=== PATIENT | male | born 1965 | race Caucasian/White ===

== ENCOUNTER 2017-02-20 12:37 | Inpatient (IN) ==
[2017-02-20 13:33] LABS: MANUAL DIFF NEEDED? NO
[2017-02-20 13:37] LABS: BASO% 0.4 % (0.0-0.8); EOS# 0.15 X1000 (0.0-0.7); EOS% 1.3 % (0.0-10.0); HEMATOCRIT 49.7 % (42.0-52.0); HEMOGLOBIN 17.6 g/dL (14.0-18.0); IMM GRAN# 0.02 X1000 (0.0-0.04); IMM GRAN% 0.2 % (0.0-0.5); LYMPH# 2.18 X1000 (1.2-3.4); LYMPH% 18.6 % (20.5-51.1); MCH 31.5 PG (27-31); MCHC 35.4 g/dL (33-37); MCV 88.9 FL (81-99); MONO# 1.29 X1000 (0.11-0.59); MPV 11.7 FL (7.4-10.4); NEUT% 68.5 % (42.2-75.2); PLT 167 X1000 (130-400); RBC 5.59 XMIL (4.7-6.1)
[2017-02-20 14:00] LABS: CALCIUM 9.8 mg/dL (8.8-10.2); POTASSIUM 3.7 mmol/L (3.5-5.1); TOTAL BILIRUBIN 0.83 mg/dL (0.20-1.00); TOTAL PROTEIN 8.6 g/dL (6.3-8.3)
[2017-02-20 14:25] LABS: URINE MICRO REVIEW NEEDED? NO; URINE SOURCE CLEAN CATCH
[2017-02-20 14:30] LABS: FREE T4 1.09 ng/dL (0.93-1.70)
[2017-02-20 14:42] LABS: BILIRUBIN URINE NEGATIVE (NEGATIVE); BLOOD URINE SMALL (NEGATIVE); COLOR YELLOW; GLUCOSE URINE NEGATIVE (NEGATIVE); LEUKOCYTES URINE SMALL (NEGATIVE); NITRITE URINE NEGATIVE (NEGATIVE); PROTEIN URINE 30 mg/dL (NEGATIVE); SP GRAVITY URINE 1.023; TURBIDITY URINE CLEAR (CLEAR); UROBILINOGEN URINE 2 mg/dL (NORMAL)
[2017-02-20 14:47] LABS: UR EPITHELIAL CELLS <10 /HPF (<10); URINE BACTERIA NEGATIVE /HPF; URINE CULTURE NEEDED? YES
[2017-02-20 14:52] LABS: UR AMPHETAMINES QUAL NONE DETECTED (NONE DETECT); UR BARBITUATES QUAL NONE DETECTED (NONE DETECT); UR BENZODIAZEPIN QUAL NONE DETECTED (NONE DETECT); UR CANNABINOIDS QUAL NONE DETECTED (NONE DETECT); UR COCAINE QUAL PRESUMPTIVE POSITIVE (NONE DETECT); UR METHADONE QUAL NONE DETECTED (NONE DETECT); UR OPIATES QUAL NONE DETECTED (NONE DETECT); UR OXYCODONE QUAL NONE DETECTED (NONE DETECT); UR PCP QUAL NONE DETECTED (NONE DETECT)
--- NOTE | 2017-02-20 15:49 | PROVIDER DOCUMENTATION ---
HPI-Psychological Disorder - General Chief Complaint: Psych Stated Complaint: AMS Time Seen by Provider: 02/20/17 15:20 Allergies/Adverse Reactions: Patient Allergies Allergy/AdvReac Type Severity Reaction Status Date / Time No Known Allergies Allergy Verified 08/17/15 10:58 Home Medications: Home Medication List Medication Instructions Recorded Confirmed Last Taken Type Albuterol Sulfate [Albuterol 8.5 gm IH Q4-6H PRN PRN #1 08/17/15 Unknown Rx Sulfate Hfa] hfa.aer.[email or web address] Benzonatate [Tessalon] 100 mg PO TID PRN PRN #20 capsule 08/17/15 Unknown Rx Cephalexin [Keflex] 500 mg PO BID #14 capsule 08/17/15 Unknown Rx Prednisone 20 mg PO DAILY #6 tablet 08/17/15 Unknown Rx - History of Present Illness-Psych Nature of Presenting Problem: 51 y.o male who presented to the ED with complaints of suicidal ideation. Pt is accompanied by mother. Pt reports history of incarceration, mental diseases and drug use since age 17. He reports binding of cocaine/crack and ETOH when going to [facility]. He has gone on a binge for the pat 4 days now. Pt reports the of his father in november and relationship problem with her fiance are the current stressors. He reports feeling worthless and is planning on cutting his wrist or neck with a knife. Pt also reports history of auditory hallucinations. He hears siren and voices but can't make out the words. In addition pt reports left flank pain that is sharp and intermittent. He has had for a couple days but feels more intense today. he indicates having a history of stage II kidney diseases. Pt denies dysuria, urinary frequency, hematuria, rectal pain, constipation, diarrhea. Pt also denies trauma. Timing: reports: still present Severity: reports: moderate Situational problems related to:: reports: spouse, parent Psychiatric Complaints: reports: hostile, homicidal thoughts, impaired concentration Substance Use: reports: alcohol, cocaine Previous psych related hospitalizations?: No Patient arrived by:: private car Similar Symptoms Previously?: Yes Recently seen or treated by another doctor?: No - Suicidal Ideation Suicide Risk Assessment: male sex, depressed, drug or ETOH abuse, no spouse Clinician's estimation of suicide risk?: uncertain risk Review of Systems - Adult - REVIEW OF SYSTEMS - ADULT Constitutional: reports: no symptoms reported Eyes: reports: no symptoms reported Ears, Nose, Mouth & Throat: reports: no symptoms reported Cardiovascular: reports: no symptoms reported Respiratory: reports: no symptoms reported Gastrointestinal: reports: no symptoms reported Genitourinary: denies: discharge, frequency, hematuria, hesitency Musculoskeletal: reports: back pain Neurological: reports: no symptoms reported Psychiatric: reports: see HPI, emotional problems Endocrine: reports: no symptoms reported Hematologic/Lymphatic: reports: no symptoms reported Allergic/Immunologic: reports: no symptoms reported All Other Systems: Reviewed and Negative Past History - Adult - PAST MEDICAL HISTORY-ADULT Review of Records: reports: Medications Reviewed Major Childhood Illnesses: reports: denies history Cardiovascular: reports: denies history Respiratory: reports: denies history Gastrointestinal: reports: denies history Obstetrical/Gynecological: reports: denies history Genitourinary: reports: denies history Musculoskeletal: reports: denies history Neurological: reports: denies history Endocrine/Immune: reports: denies history Other Conditions: reports: denies history Physical Exam-Psych Focus - Physical Exam-Psych Initial Vital Signs Reviewed: Yes Appearance: appropriate appearance, appropriate insight, neat, other (avoid eye contact, tearing,). negative: anxious, combative, disheveled Neurological: alert, normal mood/affect, production checker II-XII nml as tested, oriented x 3 , anxious. negative: agitated Behavior/Eye Contact/Speech: cooperative, normal speech, avoids eye contact. negative: decreased rate of speech, increased rate of speech, belligerent, compulsive, uncooperative Thoughts/Hallucinations: normal thought pattern, no apparent hallucination. negative: delusions, flight of ideas, grandiose, incoherent, obsessive, paranoid , persecution, phobic, tactile hallucinations, visual hallucinations HENMT: normocephalic/atraumatic, moist mucous membranes, dental decay Neck: non-tender, full range of motion, supple, normal inspection Respiratory: chest non-tender, lungs clear, normal breath sounds, no pleuratic chest pain Cardiovascular: regular rate, rhythm, no edema, no gallop, no JVD Abdominal Exam: non tender, no pulsatile mass. negative: abdominal bruit, distended Back Exam: no CVA tenderness, other (healed surgical wound in lumbar) Extremity: normal range of motion Integumentary: normal color, normal turgor Progress - PLAN OF CARE/RESULTS Progress/Plan/Lab Results: Laboratory Results - last 24 hr 02/20/17 02/20/17 02/20/17 13:15 13:15 13:15 WBC 11.69 H RBC 5.59 Hgb 17.6 Hct 49.7 MCV 88.9 MCH 31.5 H MCHC 35.4 RDW Std Deviation 12.5 Plt Count 167 MPV 11.7 H Immature Gran % (Auto) 0.2 Neut % (Auto) 68.5 Lymph % (Auto) 18.6 L Fergus % (Auto) 11.0 H Eos % (Auto) 1.3 Baso % (Auto) 0.4 Immature Gran # (Auto) 0.02 Neut # (Auto) 8.00 H Lymph # (Auto) 2.18 Fergus # (Auto) 1.29 H Eos # (Auto) 0.15 Baso # (Auto) 0.05 Sodium 136 Potassium 3.7 Chloride 96 L Carbon Dioxide 27 Anion Gap 13 BUN 22 Creatinine 1.4 H Estimated GFR/1.73 m2 54 BUN/Creatinine Ratio 16 Glucose 126 H Calculated Osmolality 277 Calcium 9.8 Total Bilirubin 0.83 AST 76 H ALT 64 H Alkaline Phosphatase 112 Total Protein 8.6 H Albumin 5.0 Globulin 3.6 Albumin/Globulin Ratio 1.4 Vitamin B12 TSH Free T4 Urine Source Urine Color Urine Turbidity Urine pH Ur Specific Coyle Urine Protein Ur Glucose (Stick) Ur Ketones (Stick) Urine Blood Urine Nitrite Urine Bilirubin Urobilinogen Dipstick Urine Leukocytes Urine WBC (Auto) Urine RBC (Auto) U Epithel Cells (Auto) Urine Bacteria (Auto) Urine Opiates Screen Ur Oxycodone Screen Ur Methadone, Qual Ur Barbiturates Screen Ur Phencyclidine Scrn Ur Amphetamines Screen U Benzodiazepines Scrn Urine Cocaine Screen U Cannabinoids Screen Plasma/Serum Ethyl Alc 02/20/17 02/20/17 02/20/17 13:15 13:51 13:51 WBC RBC Hgb Hct MCV MCH MCHC RDW Std Deviation Plt Count MPV Immature Gran % (Auto) Neut % (Auto) Lymph % (Auto) Fergus % (Auto) Eos % (Auto) Baso % (Auto) Immature Gran # (Auto) Neut # (Auto) Lymph # (Auto) Fergus # (Auto) Eos # (Auto) Baso # (Auto) Sodium Potassium Chloride Carbon Dioxide Anion Gap BUN Creatinine Estimated GFR/1.73 m2 BUN/Creatinine Ratio Glucose Calculated Osmolality Calcium Total Bilirubin AST ALT Alkaline Phosphatase Total Protein Albumin Globulin Albumin/Globulin Ratio Vitamin B12 499 TSH 2.04 Free T4 1.09 Urine Source CLEAN CATCH Urine Color YELLOW Urine Turbidity CLEAR Urine pH 6.0 Ur Specific Coyle 1.023 Urine Protein 30 A Ur Glucose (Stick) NEGATIVE Ur Ketones (Stick) 10 A Urine Blood SMALL A Urine Nitrite NEGATIVE Urine Bilirubin NEGATIVE Urobilinogen Dipstick 2 A Urine Leukocytes SMALL A Urine WBC (Auto) 10-20 A Urine RBC (Auto) 10-20 A U Epithel Cells (Auto) <10 Urine Bacteria (Auto) NEGATIVE Urine Opiates Screen NONE DETECTED Ur Oxycodone Screen NONE DETECTED Ur Methadone, Qual NONE DETECTED Ur Barbiturates Screen NONE DETECTED Ur Phencyclidine Scrn NONE DETECTED Ur Amphetamines Screen NONE DETECTED U Benzodiazepines Scrn NONE DETECTED Urine Cocaine Screen PRESUMPTIVE POSITIVE A U Cannabinoids Screen NONE DETECTED Plasma/Serum Ethyl Alc Orders Category [facility] Routine AdmDCTranf 02/20/17 19:30 Ordered Activity - Up with Assistance ORDERED Care 02/20/17 19:30 Active Apply Mechanical Device [QM] ORDERED Care 02/20/17 19:30 Active Intake and Output-Strict ORDERED Care 02/20/17 19:30 Active Nursing- MD Consult Request ROUTINE Care 02/20/17 19:53 Active Vital Signs Order Q 8-HR ASSESS Care 02/20/17 19:30 Active Z-Document. for Tele Applied ORDERED Care 02/20/17 19:31 Completed Physician/Provider Consults Routine Cons 02/20/17 19:52 Ordered NPO Diet 02/21/17 00:01 Active Regular Diet Diet 02/20/17 19:[address] RENAL STONE SEARCH [CT] Stat Exams 02/20/17 15:25 Completed ALCOHOL BLOOD Stat Lab 02/20/17 13:15 Completed BLOOD CULTURE [BLDCUL] Routine Lab 02/20/17 21:47 Results CBC WITH DIFF [HEME] Routine Lab 02/21/17 06:00 Completed CBC WITH ELECTRONIC DIFF [HEME] Stat Lab 02/20/17 13:15 Completed COMPREHENSIVE METABOLIC PANEL [CHEM] Routine Lab 02/21/17 06:00 Completed COMPREHENSIVE METABOLIC PANEL [CHEM] Stat Lab 02/20/17 13:15 Completed FREE T4 Stat Lab 02/20/17 13:15 Completed HEPATITIS PROFILE [HH] Routine Lab 02/21/17 06:00 Received MAGNESIUM [CHEM] Routine Lab 02/21/17 06:00 Completed PROTIME WITH INR [COAG] Routine Lab 02/21/17 06:00 Completed TSH Routine Lab 02/21/17 06:00 Completed TSH Stat Lab 02/20/17 13:15 Completed URINALYSIS W/POSS RFLX CULT-1 [URINALYSIS] Stat Lab 02/20/17 13:51 Completed URINE CULTURE [RM] Routine Lab 02/20/17 14:52 Results URINE DRUG SCREEN Stat Lab 02/20/17 13:51 Completed VITAMIN B12 Stat Lab 02/20/17 13:15 Completed 0.9% Sodium Chloride Inj [Ns] 1,000 ml Med 02/20/17 19:30 Active IV 100 mls/hr 0.9% Sodium Chloride Inj [Ns] 1,000 ml Med 02/20/17 16:21 Discontinued IV 999 mls/hr Carvedilol [Coreg] Med 02/20/17 21:00 Active 6.25 mg PO BID Ketorolac [Toradol] Med 02/20/17 16:20 Discontinued 30 mg IV NOW ONE LISINOpril [Prinivil] Med 02/21/17 09:00 Active 10 mg PO DAILY Lorazepam [Ativan] Med 02/20/17 19:35 Active 1 mg IV Q6H PRN PRN Morphine Med 02/20/17 19:33 Active 2 mg IV Q4H PRN PRN Mvi [M.v.i.-12] 10 ml Med 02/20/17 19:45 Active Folic Acid 1 mg Magnesium Sulfate 1 gm Thiamine 100 mg 0.9% Sodium Chloride Inj [Ns] 1,000 ml IV DAILY Mvi [M.v.i.-12] 10 ml Med 02/20/17 20:00 Discontinued Folic Acid 1 mg Magnesium Sulfate 1 gm Thiamine 100 mg 0.9% Sodium Chloride Inj [Ns] 1,000 ml IV ONCE Ondansetron [Zofran] Med 02/20/17 19:30 Active 4 mg IV Q4H PRN PRN Piperacillin/Tazobactam [Zosyn] 3.375 gm Med 02/20/17 19:45 Active 0.9% Sodium Chloride Inj [Ns] 50 ml IV Q6H Silodosin [Rapaflo] Med 02/21/17 09:00 Active 8 mg PO DAILY Telemetry [OM.EQ] Routine Oth 02/20/17 19:30 Active Transfer/Admit Order [TRANSFER] Routine Transfer 02/20/17 19:36 Completed Result Diagrams: 02/21/17 06:00 02/21/17 06:00 Departure - Departure Date of Disposition Decision: 02/20/17 Time of Disposition Decision: 17:37 DIAGNOSIS: Suicidal ideation Disposition: ADMITTED INPATIENT 09 Certified Medical Emergency: Emergent Condition: Stable - Critical Care Note This patient required my direct & personal management of CC.: No Attestation - Physician/ DAVE Attestation Patient care was provided by Advanced Practice Provider:: No The physician spent face to face time with patient:: Yes Advanced Practice Provider documentation review:: Supervising physician onsite and consulted in the evaluation and care of this patient. The physician did have a face to face encounter with the patient.
--- NOTE | 2017-02-20 16:06 | Diag Imaging Result Doc PS360 ---
EXAM: CT RENAL STONE SEARCH HISTORY: Left flank pain TECHNIQUE: CT abdomen and pelvis without contrast. Dose reduction protocol. COMPARISON: None. FINDINGS: The upper abdomen is not included on this exam. Normal noncontrasted liver, spleen, and pancreas. Normal gallbladder and adrenal glands. No right renal stone or right-sided hydronephrosis. There is a 4 x 4 by 8 mm stone in the proximal to mid left ureter with moderate proximal hydronephrosis and perinephric inflammation. No aortic aneurysm. Moderate atherosclerosis. No bowel obstruction. Normal appendix. No abscess. There are scattered diverticula in the distal colon. The urinary bladder is only mild to moderately distended and appears normal. The prostate is not enlarged. IMPRESSION: 1.There is an 8 mm stone in the mid left ureter with moderate hydronephrosis 2.Diverticulosis Electronically signed by Sriram Jasmine 02/20/2017 4:03 PM
[2017-02-20] MEDS ORDERED: TORADOL IV ONE (16:20)
[2017-02-20] MEDS ORDERED: NS 1,000 ML IV ONE (16:21)
[2017-02-20] MEDS ORDERED: ZOFRAN IV PRN (19:30)
[2017-02-20] MEDS ORDERED: MORPHINE IV PRN (19:33)
[2017-02-20] MEDS ORDERED: ATIVAN IV PRN (19:35)
[2017-02-20] MEDS ORDERED: M.V.I.-12 10 ML, FOLIC ACID 1 MG, MAGNESIUM SULFATE 1 GM, THIAMINE 100 MG in NS 1,000 ML IV ONE (20:00)
[2017-02-20] MEDS ORDERED: ZOSYN 3.375 GM in NS 50 ML IV SCH (20:00)
[2017-02-20] MEDS: M.V.I.-12 10 ML, FOLIC ACID 1 MG, MAGNESIUM SULFATE 1 GM, THIAMINE 100 MG in NS 1,000 ML IV SCH (20:30)
[2017-02-20] MEDS: NS 1,000 ML IV SCH (20:30)
[2017-02-20] MEDS: ZOSYN 3.375 GM in NS 50 ML IV SCH (20:30)
--- NOTE | 2017-02-20 22:06 | HISTORY AND PHYSICAL ---
PRESENTING COMPLAINT: Abdominal pain. Suicidal ideation. Emotional distress. HISTORY OF PRESENTING COMPLAINT: Mr. Simon is a 51-year-old male with a history of hypertension, recreational drug abuse, nicotine dependence, and psychiatric illness of undetermined diagnosis who said he was going through some emotional stresses at home and this morning according to the mother she thought Mr. Simon was going to do something very stupid because he was just crying. He was referring to the fact that he wanted to hurt himself, that he cannot fight anymore. So the mother just wanted help; however, during the episode of crying and all that, he started referring to left-sided abdominal pain which radiated to the back, very intense, that made him double up. He came to the emergency department and they did a CT scan which revealed an 8 mm stone in the left ureter causing some moderate hydronephrosis. [facility] was consulted. However, because of the CT findings, they advised that we take care of the medical problems 1st before patient can be sent over there. Patient will therefore be admitted under observation for urological exploration of the stone and then discharged to [facility]. PAST MEDICAL HISTORY: 1. Multiple recreational drug abuses. 2. Tobacco dependent. 3. Hypertension. MEDICATIONS AT HOME: 1. Lisinopril. 2. Metoprolol. 3. Patient does not really know the doses. PAST SURGICAL HISTORY: Unremarkable. SOCIAL HISTORY: Patient smokes about two packs of cigarettes daily for the past 2-3 years, which according to him it is just worse. But had about a pack of a pack of cigarettes for over 20 years. The patient also binges on alcohol. He does not really know how much because he just gets ticked off and then he just drinks to hurt himself. FAMILY HISTORY: Positive for hypertension. PSYCHIATRIC HISTORY: Patient had been a prisoner, incarcerated for 9 years and got released a couple of years ago. He has been using multiple street drugs, including heroin, meth, smokes extensively. He has a very stressful relationship at home with the girlfriend and according to him, he just cannot take it any longer and he wants to end his life. REVIEW OF SYSTEMS: A 14 point review of system conducted with him is unremarkable except what we have in the HPI and the psychiatric history. PHYSICAL EXAMINATION: VITALS: Blood pressure is 156/107, pulse 88, respirations 18, temperature is 97.9 degrees. GENERAL: Mr. Simon is a 51-year-old gentleman. He is in bed. He is not in any remarkable distress. HEENT: Mucosa is pink and moist. Anicteric and acyanotic. NECK: Supple. There is no JVD. CHEST: There is good air entry bilateral. There are no crepitations, no rhonchi. CARDIOVASCULAR: Regular rate and rhythm. There are no murmurs, no rubs, no gallops. ABDOMEN: Soft. There is some tenderness to the left flank and the left lower quadrant. There is also some left CVA tenderness. EXTREMITIES: No pedal edema. 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 There is no focal neurological deficit. Cranial nerves 2-12 have been grossly examined and unremarkable. There is no motor deficit. Sensation is intact. PSYCHIATRIC: Patient has flight of ideas, is very tearful. Occasionally will stop and cry. LABORATORY DATA: WBC is 11.69, hemoglobin is 17.6, platelet count is 167,000. Chemistry is reviewed. Sodium is 136, potassium is 3.9, chloride is 96, bicarb is 27, creatinine is 1.4. AST 76, ALT 64. B12 and folate are normal. TSH is normal. DIAGNOSTIC STUDIES: A CT scan of the abdomen, renal CT shows an 8-mm stone in the mid left ureter with moderate hydronephrosis. There is also some diverticulosis. ASSESSMENT: Mr. Simon is a 51-year-old male with an extensive psychiatric history and also drug addiction who presented with abdominal pain and some suicidal ideation. A CT scan shows ureteral stone with hydronephrosis. ASSESSMENT: 1. Left side abdominal pain secondary to ureteral stone. 2. Left hydronephrosis. 3. Street drug addiction. 4. Alcohol abuse. 5. History of hypertension, which is uncontrolled. 6. Renal insufficiency. Unsure the duration, presumably acute. 7. Transaminitis, likely alcohol hepatopathy; however, viral hepatitis needs to be ruled out because of patient's history. 8. Suicidal ideation. 9. Suspected major depression. PLAN: So for now, we are going to admit Mr. Simon under observation. We are going to hydrate him with normal saline at a rate of 100 mL/hour. We will start him on antibiotics, Zosyn at 3.375 q.6 hourly. Urine cultures have been sent and blood cultures have also been done. I have already consulted and spoken personally with Dr. Leroy, and he plans to take him in tomorrow for a stent placement in the left ureter to decompress the kidneys. I will do a hepatitis panel just to check on his viral status. Once the procedure is done tomorrow, hopefully will reconsult [facility] to transfer the patient over there. cc: Nicho Madrid MD
[2017-02-21] MEDS: M.V.I.-12 10 ML, FOLIC ACID 1 MG, MAGNESIUM SULFATE 1 GM, THIAMINE 100 MG in NS 1,000 ML IV SCH ×2 (00:43→10:43)
--- NOTE | 2017-02-21 04:12 | CONSULTATION ---
DATE OF CONSULTATION: 02/20/2017 ATTENDING AND REFERRING PHYSICIAN: Hospitalist. HISTORY OF PRESENT ILLNESS: This 51-year-old male came to the emergency room because of suicide ideation. He complained of left flank pain while there and a CT stone search revealed an 8 mm left proximal ureteral stone. He could not be transferred to the psychiatric hospital with a medical problem. The patient states he has never had stones before. He has had no previous urologic surgery. He denies any problems voiding. He has had no hematuria. PAST MEDICAL HISTORY: Chronic renal insufficiency, hypertension, drug addiction, psychiatric problems. CURRENT MEDICATIONS: Lisinopril, metoprolol. PAST SURGICAL HISTORY: Nasoseptal fracture surgery, tonsillectomy, wisdom teeth extraction, lower back surgery x2. SOCIAL HISTORY: Cigarettes, a pack a day for 40 years. ETOH use, occasional. He states he is addicted to narcotics. ALLERGIES: No known drug allergies. REVIEW OF SYSTEMS: He denies problems with diabetes, strokes, seizures, pulmonary or bowel problems. PHYSICAL EXAMINATION: General: A normally developed, well-nourished, age apparent, white male, oriented in all ways and cooperative. HEENT: Normal for age. Lungs: Clear. Cardiovascular: Regular rate and rhythm. Abdomen: Mildly protuberant, soft. Left flank tenderness. No guarding or rebound. : Uncircumcised male. Both testes are down. Small bilateral hydroceles. No inguinal hernias. Rectal: Deferred until surgery. Extremities: No clubbing, cyanosis, or edema. Neurologic: No focal deficits. DIAGNOSTIC DATA: CT stone search is as noted in the HPI. IMPRESSION: 1. Psychiatric problems. 2. Left proximal ureteral stone. PLAN: Cystoscopic exam, place left double-J stent. The planned procedure, benefits versus risks, and possible complications including but not limited to bleeding, infection, not being able to place the stent, and need for further surgery were discussed. He seems to understand and desires to proceed. His mother was present at this discussion. Also discussed that after his psychiatric problems are under control, he could then have left extracorporeal shockwave lithotripsy and stent removal. cc: Giles Leroy MD
[2017-02-21] MEDS: ZOSYN 3.375 GM in NS 50 ML IV SCH ×4 (05:26→22:27)
[2017-02-21] MEDS: NS 1,000 ML IV SCH ×4 (05:38→18:50)
[2017-02-21 06:31] LABS: MANUAL DIFF NEEDED? NO
[2017-02-21 06:35] LABS: BASO% 0.6 % (0.0-0.8); EOS# 0.23 X1000 (0.0-0.7); EOS% 3.6 % (0.0-10.0); HEMATOCRIT 46.1 % (42.0-52.0); HEMOGLOBIN 15.9 g/dL (14.0-18.0); LYMPH# 2.13 X1000 (1.2-3.4); LYMPH% 32.9 % (20.5-51.1); MCH 31.4 PG (27-31); MCHC 34.5 g/dL (33-37); MCV 90.9 FL (81-99); MONO# 0.87 X1000 (0.11-0.59); MONO% 13.4 % (1.7-9.3); MPV 11.7 FL (7.4-10.4); NEUT% 49.5 % (42.2-75.2); PLT 152 X1000 (130-400); RBC 5.07 XMIL (4.7-6.1)
[2017-02-21 06:52] LABS: INR 1.04; PROTIME 10.9 Seconds (9.2-11.7)
[2017-02-21 07:14] LABS: ALBUMIN 3.9 g/dL (3.5-5.0); CALCIUM 8.7 mg/dL (8.8-10.2); MAGNESIUM 2.4 mg/dL (1.5-2.7); POTASSIUM 4.2 mmol/L (3.5-5.1); TOTAL BILIRUBIN 0.76 mg/dL (0.20-1.00)
[2017-02-21] MEDS: COREG PO SCH ×3 (08:56→23:27)
[2017-02-21] MEDS: PRINIVIL PO SCH (08:56)
[2017-02-21] MEDS: RAPAFLO PO SCH (08:56)
--- NOTE | 2017-02-21 13:04 | EKG Report ---
Test Performed on : 02/20/2017 1:23:26 PM Test Reason : ED. Not ordered in [place] Blood Pressure : / mmHG Vent. Rate : 093 BPM Atrial Rate : 093 BPM P-R Int : 124 ms QRS Dur : 084 ms QT Int : 366 ms P-R-T Axes : 069 058 054 degrees QTc Int : 455 ms Normal sinus rhythm. Possible Left atrial enlargement Borderline ECG No previous ECGs available Unconfirmed Result
[2017-02-21] MEDS ORDERED: VERSED ONE (13:44)
[2017-02-21] MEDS ORDERED: DIPRIVAN 1% ONE (13:44)
[2017-02-21] MEDS ORDERED: FENTANYL ONE (13:44)
[2017-02-21] MEDS ORDERED: XYLOCAINE-MPF 2% ONE (13:45)
[2017-02-21] MEDS ORDERED: EPHEDRINE ONE (14:10)
--- NOTE | 2017-02-21 16:36 | Diag Imaging Result Doc PS360 ---
EXAM: FLUOROSCOPY CYSTO INDICATION: LEFT STONE EXTRACTION, STENT PLACEMENT TECHNIQUE: COMPARISON: None. FINDINGS: 15 spot fluoroscopic images were provided, which were performed during left ureteral stent placement by Dr. Giles Leroy. On the final image, the newly placed left ureteral stent is identified in the expected position. IMPRESSION: As above. Please correlate with live fluoroscopic imaging. Electronically signed by Dereje Kyle 02/21/2017 4:33 PM
--- NOTE | 2017-02-21 17:48 | PROGRESS NOTE ---
DATE: 02/21/2017 SUBJECTIVE: Today Mr. Simon refers to be doing relatively fine. He continues to have suicidal ideation and he stated that he definitely needs help. Abdominal pain has improved. Patient is still pending for his surgery. OBJECTIVE: Vital signs: Blood pressure is 121/78, pulse of 79, respirations 20 , temperature 98 degrees. General: Mr. Simon, 51-year-old male. He is in bed, not in any distress. HEENT: Mucosa is pink and moist. Anicteric. Acyanotic. Neck: Supple. Chest : Clear. No crepitations. Cardiovascular: Regular rate and rhythm. There are no murmurs, no rubs. Abdomen: Soft, minimally tender in the left side. Bowel sounds are present. Extremities : No pedal edema. Distal pulses are present. 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 Psychiatric: Patient continues to be suicidal and depressed mood. ASSESSMENT: 1. Left side abdominal pain secondary to ureteral stone. Patient is pending Urology intervention. 2. Left hydronephrosis. We will continue with the current antibiotics and hydration. 3. Street drug addiction. Patient has been counseled. 4. Suicidal ideation with suspicious of major depression. Patient is pending a bed at [facility]. 5. Transaminitis secondary to alcohol hepatopathy. The liver enzymes continue to be improving. We are still pending the hepatitis panel. 6. Renal insufficiency noted. 7. Hypertension improved. PLAN: So Mr. Simon will get his surgery today and then subsequently [facility]. cc: Nicho Madrid MD MTDD
[2017-02-21] MEDS: PERIDEX MT SCH (22:27)
[2017-02-22] MEDS: NS 1,000 ML IV SCH ×3 (02:09→22:28)
--- NOTE | 2017-02-22 05:02 | OPERATIVE NOTE ---
PROCEDURE DATE: 02/21/2017 SURGEON: Giles Leroy MD PREOPERATIVE DIAGNOSIS: Left [id number] ureteral stone with moderate obstruction. POSTOPERATIVE DIAGNOSIS: Left kjk-[id number] ureteral stone with moderate obstruction. PROCEDURE PERFORMED: Cystoscopic exam, left ureteroscopy, laser lithotripsy of stone, basket extraction of fragments, placement left double-J stent. ANESTHESIA: General via laryngeal mask. FINDINGS: Cystoscopic exam: Urethra-greater than 21 [place], without stricture. Prostate-mild hypertrophy of the lateral lobes, elevated bladder neck, length approximately 4 cm. Bladder- normal ureteral orifices bilaterally. No papillary lesions or trabeculations. Left ureteroscopy reveals an approximate 7-8 mm stone in the left mid ureter. Rectal exam reveals a prostate of about 30-40 g, smooth and symmetric. INDICATION FOR PROCEDURE: This 51-year-old male with history of renal lithiasis developed severe left flank pain. He was seen in the emergency room where a CT stone search revealed an obstructing left mid ureteral stone. DESCRIPTION OF PROCEDURE: After informed consent was obtained from the patient, and him receiving IV antibiotics, he was taken the main OR cystoscopy room placed in the supine position. General anesthesia via laryngeal mask was achieved. He was then placed in the low lithotomy position and prepped and draped in the usual sterile fashion for cystoscopic exam. A 21-[place]an cystoscope was passed through the patient's urethra, prostate, and into the bladder with findings as noted above. A 0.035 ZIPwire was passed through the cystoscope, engaged the left ureteral orifice, advanced up into the kidney. The cystoscope was removed leaving the ZIPwire in place to act as a safety wire. A 7-[place]an Storz semi-rigid ureteroscope was advanced through the patient's urethra, prostate, and into the bladder. A 0.035 Sensor wire was passed through the ureteroscope and into the ureter. The ureteroscope was advanced over the Sensor wire, but beneath the ZIPwire and up to the stone. The Sensor wire was removed. A 365 micron laser fiber was placed. The laser was set at 8 hertz and 8 gamez, and the stone was fragmented. A total of 190 joules was used. A 4 wire Nitinol basket was placed and several passes were made to remove stone fragments. These were sent to Pathology for analysis. The ureteroscope was advanced up to the UPJ area. No further stones were visualized. The ureteroscope was removed. A 6-[place]an, 24 cm double-J stent was passed over the ZIPwire and up into the kidney. The renal end was verified by fluoroscopic exam, bladder and directly visualized. Bladder was drained. Cystoscope was removed. Stent removal string was securely taped to the penile shaft. Rectal exam was performed. He tolerated the procedure well. ESTIMATED BLOOD LOSS: Zero. He was taken to recovery room in good condition. cc: Giles Leroy MD
[2017-02-22] MEDS: ZOSYN 3.375 GM in NS 50 ML IV SCH ×4 (05:30→22:05)
[2017-02-22] MEDS: RAPAFLO PO SCH (09:45)
[2017-02-22] MEDS: PERIDEX MT SCH ×2 (09:58→21:42)
[2017-02-22] MEDS: PRINIVIL PO SCH (09:58)
[2017-02-22] MEDS: COREG PO SCH ×2 (09:58→21:42)
[2017-02-22] MEDS: M.V.I.-12 10 ML, FOLIC ACID 1 MG, MAGNESIUM SULFATE 1 GM, THIAMINE 100 MG in NS 1,000 ML IV SCH (09:59)
[2017-02-22 11:55] LABS: HEPATITIS PROFILE ACUTE SEE COMMENTS
--- NOTE | 2017-02-22 18:29 | PROGRESS NOTE ---
DATE: 02/22/2017 SUBJECTIVE: Today, Mr. Simon refers to be doing a little better. He wanted to know if he could be discharged because according to him he is no more thinking about hurting himself. However, [facility] did another screening this morning and they think he is suicidal and cannot be discharged. OBJECTIVE: Vital signs: Blood pressure is 161/91, pulse of 71, respirations 16, temperature 98.2 degrees. General: Mr. Simon is a 51-year-old, male. He is in bed. He is not in any distress. HEENT: Mucosa is pink and moist. Anicteric. Acyanotic. Neck: Supple. Chest: Good air entry bilateral. There are no crepitations, no rhonchi. Cardiovascular: Regular rate and rhythm. No murmurs, no rubs, no gallops. Abdomen: Soft, nontender. Bowel sounds are present. His genitals have the strength of the stent. Central Nervous System: Patient is awake, alert. He still continues to be very pressured talking and occasionally becomes tearful. ASSESSMENT: 1. Left side abdominal pain secondary to ureteral stone status post cystoscopic examination left ureteroscopy, laser lithotripsy of stone, basket extraction of fragments and placement of left double-J stent. Today is day 1 postop. 2. Left hydronephrosis. We will continue with hydration and antibiotics. 3. History of drug addiction. 4. Suicidal ideation with suspicion of major depression. As I said, [facility] had done another screening this afternoon and their recommendation is for inpatient psychiatric unit but they do not have any bed over there, therefore, we will get a community mental health social worker to be looking beyond [facility] for placement. 5. Transaminitis. This is multifactorial. We thought it is related to alcohol, however, serology is also positive for hepatitis C antibody. The supplemented test for hepatitis RNA by PCR has been ordered and we are pending results. 6. Renal insufficiency. 7. Hypertension. We will continue with patient's medications. 8. Today, Mr. Simon is status post urologic intervention which was successful. We will continue the antibiotics. We will continue addressing his pain and we will get a community mental health social worker to start looking for other placement for other inpatient psychiatric placement. cc: Nicho Madrid MD
[2017-02-22 19:23] LABS: URINE MICRO REVIEW NEEDED? NO; URINE SOURCE VOIDED
[2017-02-22 19:28] LABS: BILIRUBIN URINE NEGATIVE (NEGATIVE); BLOOD URINE LARGE (NEGATIVE); COLOR ORANGE; GLUCOSE URINE NEGATIVE (NEGATIVE); LEUKOCYTES URINE SMALL (NEGATIVE); NITRITE URINE NEGATIVE (NEGATIVE); PH URINE 7.5; PROTEIN URINE 30 mg/dL (NEGATIVE); SP GRAVITY URINE 1.011; TURBIDITY URINE HAZY (CLEAR); UROBILINOGEN URINE NORMAL (NORMAL)
[2017-02-22 19:29] LABS: UR EPITHELIAL CELLS <10 /HPF (<10); URINE BACTERIA NEGATIVE /HPF; URINE RBC TNTC /HPF (<10); URINE WBC <10 /HPF (<10)
[2017-02-23] MEDS: ZOSYN 3.375 GM in NS 50 ML IV SCH ×2 (04:09→11:47)
[2017-02-23 05:59] LABS: MANUAL DIFF NEEDED? NO
[2017-02-23 06:10] LABS: BASO% 0.6 % (0.0-0.8); EOS% 4.7 % (0.0-10.0); HEMATOCRIT 41.2 % (42.0-52.0); HEMOGLOBIN 13.9 g/dL (14.0-18.0); LYMPH# 1.99 X1000 (1.2-3.4); LYMPH% 31.2 % (20.5-51.1); MCH 31.2 PG (27-31); MCHC 33.7 g/dL (33-37); MCV 92.6 FL (81-99); MONO# 0.56 X1000 (0.11-0.59); MONO% 8.8 % (1.7-9.3); MPV 11.9 FL (7.4-10.4); NEUT% 54.7 % (42.2-75.2); PLT 141 X1000 (130-400); RBC 4.45 XMIL (4.7-6.1)
[2017-02-23 06:35] LABS: AGAP 9; BUN 11 mg/dL (8-22); CALCIUM 8.7 mg/dL (8.8-10.2); CHLORIDE 109 mmol/L (98-107); COSMO 288; SODIUM 145 mmol/L (136-145); TCO2 27 mmol/L (25-35)
[2017-02-23] MEDS: NS 1,000 ML IV SCH (08:35)
[2017-02-23] MEDS: COREG PO SCH ×2 (08:36→20:56)
[2017-02-23] MEDS: PRINIVIL PO SCH (08:36)
[2017-02-23] MEDS: PERIDEX MT SCH ×2 (08:37→20:56)
[2017-02-23] MEDS: RAPAFLO PO SCH (08:52)
[2017-02-23] MEDS: M.V.I.-12 10 ML, FOLIC ACID 1 MG, MAGNESIUM SULFATE 1 GM, THIAMINE 100 MG in NS 1,000 ML IV SCH (08:52)
--- NOTE | 2017-02-23 13:33 | PROGRESS NOTE ---
DATE: 02/23/2017 SUBJECTIVE: Today, Mr. Simon referred to be doing a little better. He denies any suicidal ideations now. OBJECTIVE: Vital signs: Blood pressure is 153/88, pulse rate of 60, respirations 20, temperature 97.9 degrees. General: Mr. Simon is a 51-year-old, male. He is in bed, no distress. HEENT: Mucosa is pink and moist. Anicteric. Acyanotic. Neck: Supple. Chest: Clear. Cardiovascular: Regular rate and rhythm. Abdomen: Soft, nontender. Extremities: No pedal edema. 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 There is no focal neurological deficit. Psychiatric: Patient seems to be more reasonable this morning and there is no pressured speech. He is not tearful. He is more logical in his thought process. LABORATORY DATA: WBC is 6.38, hemoglobin is 13.9, platelet count is 141,000. Chemistry is reviewed and is unremarkable. ASSESSMENT: 1. Left-sided abdominal pain secondary to ureteral stone status post cystoscopic exams, left ureteroscopy, and laser lithotripsy of the stone and basket extraction of fragments and placement of left double-J stent. Today is day 2 postop. Patient does have some residual hematuria but he has been assured by Urology that it is normal. 2. Left hydronephrosis. Decompressed. The patient is currently on antibiotics. 3. History of recreational drug addiction. The toxicology was positive for cocaine and patient has been counseled. 4. Suicidal ideation with suspicion of major depression. [facility] has evaluated the patient and recommend inpatient psych; however, dialysis social worker is now looking for placement. 5. Transaminitis. Likely a combination of viral hepatitis as well as alcohol hepatitis. 6. Hepatitis C antibody positive. 7. Hypertension stable. Today, we are going to continue with the antibiotic and adequate hydration. We will switch the IV mode of vitamin to p.o. Urine culture so far is negative. So we would also switch the antibiotics to something P.O. and get the patient ready for transitioning to inpatient psych or home by Saturday. cc: Nicho Madrid MD
[2017-02-24] MEDS: NORCO-5 PO PRN ×2 (03:51→21:06)
[2017-02-24] MEDS: COREG PO SCH ×2 (09:35→21:08)
[2017-02-24] MEDS: LEVAQUIN PO SCH (09:35)
[2017-02-24] MEDS: THERA M PLUS PO SCH (09:35)
[2017-02-24] MEDS: PERIDEX MT SCH ×2 (09:35→21:08)
[2017-02-24] MEDS: PRINIVIL PO SCH (09:35)
[2017-02-24] MEDS: FLOMAX PO SCH (09:58)
--- NOTE | 2017-02-24 16:06 | PROGRESS NOTE ---
DATE: 02/24/2017 SUBJECTIVE: Today Mr. Simon refers to be doing a lot better. Denies any suicidal ideation. OBJECTIVE: Vital signs: Blood pressure is 181/94, pulse 65, respirations 15, temperature 98.1 degrees. General: Mr. Simon is a 51-year-old male. He is in bed. He is not in any distress. HEENT: Mucosa is pink and moist. Anicteric. Acyanotic. Neck: Supple. Chest: Clear. Cardiovascular: Regular rate and rhythm. There are no murmurs, no rubs, no gallops. Abdomen: Soft, nontender. No hepatosplenomegaly. Extremities: No pedal edema. Distal pulses are present. 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 There is no focal neurological deficit. Psychiatric: Patient seems to be more reasonable. He is not anymore tearful and denies any suicidal ideation. LABORATORY DATA: None for today. ASSESSMENT: 1. Left side abdominal pain secondary to ureteral stone, status post cystoscopic examination, left ureteroscopy and laser lithotripsy of the stone, basket extraction of the fragment and placement of left double-J stent. Today is day 3 postoperative. Patient seems to be doing a lot better. There is no more abdominal pain. He does have some residual hematuria. 2. Left hydronephrosis is decompressed. Patient is currently on Levaquin. Today is day 3 on antibiotics. We plan to treat this for a total of 7 days. 3. History of recreational drug addiction. Urine toxicology is positive for cocaine. Patient has been counseled. 4. Suicidal ideation with suspicion of major depression on presentation. [facility] evaluated the patient twice. They recommended inpatient admission; however, now patient is denying any suicidal ideation. community outreach worker has, however, been consulted for inpatient placement. If patient continues to be nonsuicidal, we will be able to discharge him tomorrow home with follow-up appointment with Psychiatry. 5. Transaminitis. I think this a combination of a viral hepatitis and alcohol-induced hepatitis. Stable. 6. Hepatitis C antibody positive. We waiting on the genotype as well as the PCR. 7. Hypertension is uncontrolled. Patient is currently on carvedilol and lisinopril. I will add also tamsulosin for blood pressure control and also for prostate abnormalities. cc: Nicho Madrid MD
[2017-02-25 07:21] VITALS: BP 149/102
[2017-02-25] MEDS: PERIDEX MT SCH (09:36)
[2017-02-25] MEDS: FLOMAX PO SCH (09:36)
[2017-02-25] MEDS: PRINIVIL PO SCH (09:36)
[2017-02-25] MEDS: THERA M PLUS PO SCH (09:36)
[2017-02-25] MEDS: COREG PO SCH (09:36)
[2017-02-25] MEDS: LEVAQUIN PO SCH (09:36)
--- NOTE | 2017-02-26 06:14 | DISCHARGE SUMMARY ---
ADMISSION DATE: 02/20/2017 DISCHARGE DATE: 02/25/2017 CONSULTATIONS DURING THIS ADMISSION: [facility] was consulted. Urology was consulted. Patient was seen by Dr. Leroy. INVASIVE PROCEDURES DONE DURING THIS ADMISSION: Cystoscopic exam, left ureteroscopy, laser lithotripsy of stone, basket extraction of fragments, and placement of a left double-J stent was done by Dr. Leroy on 02/21/2017. DISPOSITION: Home. FOLLOWUP: 1. With Dr. Leroy. 2. [facility]. ADMISSION DIAGNOSES: 1. Left side abdominal pain secondary to ureteral stone. 2. Left hydronephrosis. 3. Street drug addiction. 4. Alcohol abuse. 5. Suicidal ideation. 6. Suspected major depression. DIAGNOSES AT THE TIME OF DISCHARGE: 1. Left side abdominal pain secondary to ureteral stone, status post urological intervention. 2. Left hydronephrosis is decompressed. 3. History of recreational drug addiction. Urine toxicology positive for cocaine. 4. Suicidal ideation with suspicion of major depression. 5. Transaminitis secondary to viral hepatitis and alcohol induced hepatitis. 6. Hepatitis C antibody positive. 7. Hypertension. DISCHARGE MEDICATIONS: 1. Albuterol inhalers. 2. Carvedilol 6.25 b.i.d. 3. Hydrocodone. 4. Levofloxacin 500 p.o. daily for 5 days. 5. Lisinopril 10 mg daily. 6. Tamsulosin 0.4 mg daily. 7. Multivitamin 1 tablet p.o. daily. PRESENTING COMPLAINT: Abdominal pain, suicidal ideations. HISTORY OF PRESENTING COMPLAINT: Mr. Simon is a 51-year-old, male who has a history of recreational drug addiction, nicotine dependence, psychiatric illness of undetermined diagnosis, and hypertension who presented to the emergency department because of some suicidal ideation and left side abdominal pain. The patient was investigated. A CT scan revealed left side hydronephrosis with a possible stone. Was admitted to take care of the medical part. In the ER, because of suicidal ideation, [facility] was also consulted. Their recommendation was to keep him inpatient. HOSPITAL COURSE: The patient did pretty well during the hospital stay. Successfully underwent urological intervention. Postoperatively, he did have a little bit of hematuria which was reassured to be okay from urology. He was recommended to continue with the antibiotics. We did reconsult [facility] and they continued to recommend inpatient hospital stay. However, patient referred not to be suicidal any more. Today, he refers to be feeling a whole lot better. Denies any more suicidal ideation. Clinically stable. Vitals have been reviewed and unremarkable. Lab works have been reviewed and they are stable. He was therefore discharged home. Thorough information has been given to him [facility] He will also follow up with Dr. Leryo for the stone. At the time of the discharge, the patient is clinically stable. No suicidal ideation. He has been advised to come to the emergency room if anything acutely happens. Time spent for discharge is 37 minutes. cc: Nicho Madrid MD
[2017-02-26 13:18] LABS: HCV BY PCR SEE COMMENTS; HCV CHARGE YES
--- NOTE | 2017-03-01 14:15 | ED EKG INTERP ---
This chart was entered by Ernestine Lilly Scribe, acting as scribe for Jean Carlos Lobo MD. EKG Interpretation - EKG Time of EKG reading by physician:: 13:27 EKG Read and Signed by:: Jean Carlos Lobo EKG Interpretation (*Must complete 3 of following elements*): Normal Rate: 93 Rhythm: normal sinus rhythm [place]: normal QRS: normal [place] Interval: normal ST Wave: normal Comments: possible left atrial enlargement Attestation - Physician/ DAVE Attestation Patient care was provided by Advanced Practice Provider:: No The physician spent face to face time with patient:: Yes Advanced Practice Provider documentation review:: Supervising physician onsite and consulted in the evaluation and care of this patient. The physician did have a face to face encounter with the patient. This chart was documented by the indicated scribe, (Ernestine Lilly Scribe) and accurately reflects the services I performed and decisions made by me, Jean Carlos Lobo MD, as attested by the provider's signature.
== END 2017-02-25 11:32 | disposition home or self-care (01) ==
LOC: EDIPHOLD 12:37 → ED 12:37 → OBSVTOIN 20:52 → 4N 02-21 16:05
PROVIDERS: ATTEND Internal Medicine